=== PATIENT | male | born 1995 | race Caucasian/White ===

== ENCOUNTER 2017-02-17 12:16 | Emergency (ER) | payer MEDICAID, OTHER ==
[~2017-02-17] VITALS: Ht 160 cm; Wt 63.5 kg
[~2017-02-17 12:16] MED LIST: LEVO50TA PO
[2017-02-17 12:48] VITALS: BP 126/82
== END 2017-02-17 13:05 | disposition home or self-care (01) ==
LOC: ER 12:18
DX: J02.8 Acute pharyngitis due to other specified organisms (principal)
CPT/HCPCS: A4606; Z7610

== ENCOUNTER 2017-11-26 16:45 | Emergency (ER) | payer OTHER ==
[~2017-11-26] VITALS: Ht 177.8 cm; Wt 61.2 kg
[2017-11-26 18:32] VITALS: BP 117/74
== END 2017-11-26 18:33 | disposition home or self-care (01) ==
LOC: ER 16:46
DX: R06.02 Shortness of breath (principal); E03.9 Hypothyroidism, unspecified
CPT/HCPCS: 71045; 93005; 99284; A4606; Z7610

== ENCOUNTER 2021-11-10 14:25 | Emergency (ER) | payer OTHER ==
[~2021-11-10] VITALS: Ht 170.2 cm; Wt 63.5 kg
--- NOTE | 2021-11-10 14:39 | NUR ---
TO ER BED 11. BIBS C/O DIZZINESS, NAUSEA, AND FEELS SEASICK X 2 DAYS AND NOTHIGN IS GOING AWAY. PT ATTCHED TO MONITOR. DR WOLF AT BEDSIDE.
--- NOTE | 2021-11-10 14:51 | NUR ---
IV ESTABLISHED L UPPER ARM 20G. LABS DRAWN AND COLLECTED. CONVERTED TO SALINE LOCK.
[2021-11-10] MEDS: IV NS 0.9% 1,000 ML BAG IV ONE (15:13)
[2021-11-10 15:24] LABS: BASOPHILS # (AUTO) 0.1 K/uL (0.0-0.2); BASOPHILS % (AUTO) 0.7 % (0.0-2.0); EOSINOPHILS % (AUTO) 2.1 % (0.0-6.0); HEMATOCRIT 45 % (39-51); LYMPHOCYTES # (AUTO) 2.1 K/uL (0.8-4.8); LYMPHOCYTES % (AUTO) 21.6 % (20.0-44.0); MEAN CORPUSCULAR HGB CONC 33 g/dl (31.0-36.0); MEAN CORPUSCULAR VOLUME 92 fL (80-96); MONOCYTES # (AUTO) 0.5 K/uL (0.1-1.30); MONOCYTES % (AUTO) 5.1 % (2.0-12.0); NEUTROPHILS # (AUTO) 6.7 K/uL (1.8-8.9); NEUTROPHILS % (AUTO) 70.5 % (43.0-81.0); PLATELET COUNT (AUTO) 258 K/uL (150-450); RED BLOOD CELL COUNT(AUTO) 4.91 MIL/uL (4.5-6.0); WHITE BLOOD COUNT (AUTO) 9.5 K/uL (4.3-11.0)
[2021-11-10 15:37] LABS: CALCIUM, SERUM 9.5 mg/dL (8.5-10.1); CREATININE 0.5 mg/dL (0.6-1.3); POTASSIUM 5.7 mmol/L (3.5-5.1)
[2021-11-10 15:41] LABS: ALBUMIN 4.4 g/dL (3.4-5.0); BILIRUBIN,DIRECT 0.1 mg/dL (0.0-0.2); BILIRUBIN,TOTAL 0.8 mg/dL (0.2-1.0); TOTAL PROTEIN, SERUM 8.4 g/dL (6.4-8.2)
[2021-11-10] MEDS ORDERED: MECLIZINE HCL 25 MG TABLET ONE (16:52)
[2021-11-10] MEDS: MECLIZINE HCL 12.5 MG TABLET PO ONE (16:54)
[2021-11-10] MEDS: IV NS 0.9% 1,000 ML IV ONE (16:54)
--- NOTE | 2021-11-10 17:36 | NUR ---
IV removed. Catheter intact and site benign. Pressure and 4x4 applied to site. No bleeding noted.Patient discharged to home in stable condition. Written and verbal after care instructions given. Patient verbalizes understanding of instruction.
[2021-11-10 17:38] VITALS: BP 121/80
== END 2021-11-10 17:38 | disposition home or self-care (01) ==
LOC: ER 14:25
DX: R55 Syncope and collapse (principal); R11.0 Nausea; R53.83 Other fatigue; E03.9 Hypothyroidism, unspecified; Z01.84 Encounter for antibody response examination; Z85.72 Personal history of non-Hodgkin lymphomas; Z87.898 Personal history of other specified conditions; Z79.899 Other long term (current) drug therapy
CPT/HCPCS: 36415; 71045; 80048; 80076; 82962; 85025; 93005; 96360; 96361; 99285; J7030 ×2; J8597